=== PATIENT | female | born 1960 | race Caucasian/White ===

== ENCOUNTER 2019-07-08 13:26 | Observation (INO) | payer OTHER ==
[2019-07-08] MEDS: Sodium Chloride 0.9% 10 ML Syringe FLUSH PRN ×3 (13:35→21:47)
[2019-07-08] MEDS ORDERED: Sodium Chloride 0.9% 1,000 ML IV SCH (13:45)
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
[2019-07-08] MEDS ORDERED: Ketorolac 30 MG/ML SDV IVPUSH ONE (15:22)
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
[2019-07-08] MEDS ORDERED: Ketorolac 30 MG/ML SDV IVPUSH PRN (16:22)
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
[2019-07-09 05:17] VITALS: PULSE 67
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
[2019-07-09 11:08] VITALS: BP 118/80
== END 2019-07-09 12:15 | disposition home or self-care (01) ==
LOC: FB.ED 13:26 → FB.MS 15:38
PROVIDERS: ADMIT Family Medicine; ATTEND Family Medicine
DX: S20.219A Contusion of unspecified front wall of thorax, initial encounter (principal); S80.212A Abrasion, left knee, initial encounter; S00.31XA Abrasion of nose, initial encounter; S60.413A Abrasion of left middle finger, initial encounter; E78.00 Pure hypercholesterolemia, unspecified; I10 Essential (primary) hypertension; K21.9 Gastro-esophageal reflux disease without esophagitis; E11.9 Type 2 diabetes mellitus without complications; E66.9 Obesity, unspecified; V49.40XA Driver injured in collision with unspecified motor vehicles in traffic accident, initial encounter; Y92.410 Unspecified street and highway as the place of occurrence of the external cause; Z88.1 Allergy status to other antibiotic agents; Z88.0 Allergy status to penicillin; Z88.2 Allergy status to sulfonamides
CPT/HCPCS: 36415; 70450; 70486; 71250; 72125; 80048; 81001; 85025; 85610; 93005; J1885; J7030